=== PATIENT | female | born 1995 | race Two or more races ===

== ENCOUNTER 2019-03-27 07:16 | Outpatient (CLI) | payer BC | END 2019-03-27 07:17 | disposition home or self-care (01) | LOC: LAB 07:16 | PROVIDERS: ATTEND Physician Assistant | DX: E66.9 Obesity, unspecified (principal) | CPT/HCPCS: 36415; 82947 ==

== ENCOUNTER 2019-04-03 16:45 | Outpatient (CLI) | payer BC ==
[2019-04-03 21:39] LABS: TRICHOMONAS VAGINALIS DNA NEGATIVE (NEGATIVE)
== END 2019-04-03 23:59 | disposition home or self-care (01) ==
LOC: LAB.R 16:45
PROVIDERS: ATTEND Obstetrics & Gynecology
DX: N92.1 Excessive and frequent menstruation with irregular cycle (principal)
CPT/HCPCS: 87491; 87591; 87661

== ENCOUNTER 2019-04-11 11:07 | Outpatient (CLI) | payer SELFPAY ==
--- NOTE | 2019-04-13 09:59 | Ultrasound Report ---
Reason: MENOMETRORRHAGIA Procedure Date: 04/11/2019 Accession Number: [id number] / [id number] Procedure: US - Pelvic w/Transvaginal CPT Code: FULL RESULT: EXAM: PELVIC ULTRASOUND EXAM DATE: 04/11/2019 12:25 PM. CLINICAL HISTORY: Menometrorrhagia. COMPARISON: None. TECHNIQUE: Realtime transabdominal pelvic scan performed to identify the uterus and adnexa and as an overview of other pelvic structures, followed by transvaginal scan to provide greater detail of the uterus and adnexa, with static image documentation. FINDINGS: Uterus: 5.8 x 2.9 x 4.0 cm, volume 35 cc. Anteverted position. Normal overall size and echotexture. Masses: None. Endometrium: 8 mm. Within normal range of thickness. No definite mass or abnormal echotexture demonstrated. However, there is a vessel extending into the anterior aspect of the endometrium. Polyp or neoplasm not definitely excluded. Cervix: Multiple small nabothian cysts. Right Ovary: 2.9 x 2.0 x 3.0 cm, volume 8.9 cc. Normal echotexture and blood flow. Numerous small peripheral follicles. Left Ovary: 2.8 x 1.8 x 2.0 cm, volume 5.1 cc. Normal echotexture and blood flow. Numerous small peripheral follicles. Free Fluid: Minimal free fluid, likely physiologic. Other: None. IMPRESSION: 1. Anterior endometrial vascularity for which polyp or neoplasm is not excluded. No other definite endometrial or uterine abnormality demonstrated. 2. Both ovaries demonstrate numerous small peripheral follicles. 3. Minimal free pelvic fluid, likely physiologic. RADIA
== END 2019-04-11 11:08 | disposition home or self-care (01) ==
LOC: DI 11:07
PROVIDERS: ATTEND Obstetrics & Gynecology
DX: N92.1 Excessive and frequent menstruation with irregular cycle (principal)
CPT/HCPCS: 76830; 76856

== ENCOUNTER 2019-04-20 11:38 | Outpatient (CLI) | payer SELFPAY ==
[2019-04-20 14:18] LABS: THYROID STIMULATING HORMONE 1.43 uIU/mL (0.34-5.60)
[2019-04-20 14:23] LABS: PROLACTIN 4.26 ng/mL
[2019-04-20 14:45] LABS: FOLLICLE STIMULATING HORMONE 8.08 mIU/mL
[2019-04-20 14:46] LABS: LUTEINIZING HORMONE 11.82 mIU/mL
== END 2019-04-20 11:39 | disposition home or self-care (01) ==
LOC: LAB 11:38
PROVIDERS: ATTEND Obstetrics & Gynecology
DX: N92.1 Excessive and frequent menstruation with irregular cycle (principal)
CPT/HCPCS: 36415; 81599; 83001; 83002; 84146; 84443

== ENCOUNTER 2020-10-13 11:04 | Outpatient (CLI) | payer BC, OTHER ==
[2020-10-13 17:50] LABS: BASOPHILS % (AUTO) 0.4 %; EOSINOPHILS # (AUTO) 0.1 10^3/uL (0.0-0.7); EOSINOPHILS % (AUTO) 1.4 %; HCT - HEMATOCRIT 31.5 % (37.0-47.0); HGB - HEMOGLOBIN 8.7 g/dL (12.0-16.0); LYMPHOCYTES # (AUTO) 2.7 10^3/uL (1.5-3.5); LYMPHOCYTES % (AUTO) 29.5 %; MEAN CORPUSCULAR HEMOGLOBIN 18.5 pg (27.0-31.0); MEAN CORPUSCULAR HGB CONC 27.6 g/dL (32.0-36.0); MEAN PLATELET VOLUME 9.1 fL (7.9-10.8); MONOCYTES # (AUTO) 0.6 10^3/uL (0.0-1.0); MONOCYTES % (AUTO) 6.9 %; NEUTROPHILS # (AUTO) 5.6 10^3/uL (1.5-6.6); NEUTROPHILS % (AUTO) 61.3 %; PLT - PLATELET COUNT 507 10^3/uL (130-450); RED CELL DISTRIBUTION WIDTH 22.3 % (12.0-15.0); WHITE BLOOD COUNT 9.1 x10^3/uL (4.8-10.8)
[2020-10-13 18:04] LABS: ALBUMIN 4.3 g/dL (3.2-5.5); ALBUMIN/GLOBULIN RATIO 1.1 (1.0-2.2); ALKALINE PHOSPHATASE 87 IU/L (42-121); ALT ALANINE AMINOTRANSFERASE 17 IU/L (10-60); AST ASPARTATE AMINOTRANSFERASE 21 IU/L (10-42); BILIRUBIN,TOTAL < 0.2 mg/dL (0.2-1.0); BUN - BLOOD UREA NITROGEN 10 mg/dL (6-20); CALCIUM 8.9 mg/dL (8.5-10.3); CARBON DIOXIDE - CO2 24 mmol/L (21-32); CHLORIDE 104 mmol/L (101-111); CREATININE 0.7 mg/dL (0.4-1.0); GFR - MDRD 100 (>89); GLUCOSE 94 mg/dL (70-100); POTASSIUM 3.8 mmol/L (3.5-5.0); SODIUM 138 mmol/L (135-145); TOTAL PROTEIN 8.2 g/dL (6.7-8.2)
[2020-10-13 19:16] LABS: PLATELET ESTIMATE, MANUAL INCREASED (>450,000) (NORMAL); PLATELET MORPHOLOGY NORMAL APPEARANCE (NORMAL); SLIDE REVIEW? Indicated
== END 2020-10-13 23:59 | disposition home or self-care (01) ==
LOC: LAB.N 11:04
PROVIDERS: ATTEND Family Medicine
DX: R10.9 Unspecified abdominal pain (principal)
CPT/HCPCS: 36415; 80053; 85025

== ENCOUNTER 2020-10-17 16:31 | Outpatient (CLI) | payer BC ==
[2020-10-17] MEDS ORDERED: IOPAMIDOL-300 50 ML VIAL ONE (16:33)
[2020-10-17] MEDS ORDERED: IOPAMIDOL-300 100 ML VIAL ONE (16:34)
[2020-10-17] MEDS ORDERED: IOPAMIDOL-300 100 ML VIAL IVP ONE (17:55)
[2020-10-17] MEDS ORDERED: IOPAMIDOL-300 50 ML VIAL PO ONE (17:56)
--- NOTE | 2020-10-17 18:53 | CT Report ---
PROCEDURE: Abdomen/Pelvis W INDICATIONS: ABD PAIN CONTRAST: IV CONTRAST: Isovue 300 ml: 100 PO CONTRAST: Isovue 300 ml50 TECHNIQUE: After the administration of IV and oral contrast, 5 mm thick sections acquired from the diaphragms to the symphysis. 5 mm thick coronal and sagittal reformats were acquired. For radiation dose reducti on, the following was used: automated exposure control, adjustment of mA and/or kV according to anderson ent size. COMPARISON: Pelvic ultrasound dated 04/11/2019 FINDINGS: Image quality: Excellent. ABDOMEN: Lung bases: Lung bases are clear. Heart size is normal. Solid organs: Liver and spleen are normal in size and enhancement. Gallbladder is within normal olivas its Biliary system is non dilated. Pancreas enhances normally. No adrenal nodules. Kidneys demons trate normal size and enhancement, without hydronephrosis. Peritoneum and bowel: There is a small hiatal hernia. Bowel loops demonstrate normal wall thickness and caliber. No free fluid or air. Mild fecal stasis in the colon is seen. Appendix is visualized a nd is within normal limits. Nodes and vessels: No retroperitoneal or mesenteric adenopathy by size criteria. Aorta and inferior vena cava are normal in size. Miscellaneous: No ventral hernias. PELVIS: Genitourinary: Bladder wall thickness is normal. Uterus and bilateral ovaries show no gross abnorma lity. Miscellaneous: No inguinal hernias or adenopathy. Bones: No suspicious bony lesions. No vertebral body compression fractures. IMPRESSION: 1. No acute inflammatory process within abdomen or pelvis. No bowel obstruction. No abnormal bowel wa ll thickening. Normal appendix. No free fluid of free air. Small hiatal hernia and mild constipation. 2. No renal stone or hydronephrosis. Reviewed by: Ralph Gerard MD on 10/17/2020 5:52 PM AKDT Approved by: Ralph Gerard MD on 10/17/2020 5:52 PM AKDT Station ID: [id number]
== END 2020-10-17 16:32 | disposition home or self-care (01) ==
LOC: DI 16:31
PROVIDERS: ATTEND Family Medicine
DX: R10.9 Unspecified abdominal pain (principal)
CPT/HCPCS: 74177; Q9967

== ENCOUNTER 2020-10-19 08:00 | Outpatient (CLI) | payer BC ==
[2020-10-19 12:05] LABS: BASOPHILS % (AUTO) 0.5 %; EOSINOPHILS # (AUTO) 0.1 10^3/uL (0.0-0.7); EOSINOPHILS % (AUTO) 2.1 %; HCT - HEMATOCRIT 30.3 % (37.0-47.0); HGB - HEMOGLOBIN 8.5 g/dL (12.0-16.0); LYMPHOCYTES # (AUTO) 1.8 10^3/uL (1.5-3.5); LYMPHOCYTES % (AUTO) 27.4 %; MEAN CORPUSCULAR HEMOGLOBIN 18.4 pg (27.0-31.0); MEAN CORPUSCULAR HGB CONC 28.1 g/dL (32.0-36.0); MEAN CORPUSCULAR VOLUME 65.4 fL (81.0-99.0); MEAN PLATELET VOLUME 9.1 fL (7.9-10.8); MONOCYTES # (AUTO) 0.4 10^3/uL (0.0-1.0); MONOCYTES % (AUTO) 6.6 %; NEUTROPHILS # (AUTO) 4.2 10^3/uL (1.5-6.6); NEUTROPHILS % (AUTO) 62.9 %; PLT - PLATELET COUNT 508 10^3/uL (130-450); RED BLOOD COUNT 4.63 10^6/uL (4.20-5.40); RED CELL DISTRIBUTION WIDTH 22.1 % (12.0-15.0); RETICULOCYTE COUNT % (AUTO) 1.73 % (0.5-2.3); WHITE BLOOD COUNT 6.7 x10^3/uL (4.8-10.8)
[2020-10-19 12:15] LABS: % IRON SATURATION 4 % (20-50); IRON 20 ug/dL (28-170); TOTAL IRON BINDING CAPACITY 501 ug/dL (250-450); TRANSFERRIN 358 mg/dL (192-382)
[2020-10-19 12:18] LABS: FERRITIN 5.7 ng/mL (11.0-306.8)
[2020-10-19 12:21] LABS: FOLATE 22.46 ng/mL (5.90 - >24.8)
[2020-10-19 12:25] LABS: SLIDE REVIEW? Indicated
== END 2020-10-19 23:59 | disposition home or self-care (01) ==
LOC: LAB.N 08:00
PROVIDERS: ATTEND Family Medicine
DX: D64.9 Anemia, unspecified (principal)
CPT/HCPCS: 36415; 81599; 82607; 82728; 82746; 83020; 83540; 84466; 85014; 85018; 85025; 85041; 85045

== ENCOUNTER 2021-04-25 16:09 | Outpatient (CLI) | payer BC ==
--- NOTE | 2021-04-26 09:06 | Ultrasound Report ---
PROCEDURE: Pelvic w/Transvaginal INDICATIONS: POLYCYSTIC OVARIAN SYNDROME TECHNIQUE: Real-time scanning was performed of the pelvic organs, with image documentation. Additional endovagi nal scanning was necessary due to incomplete visualization of the adnexal and endometrial structures by transabdominal scanning. COMPARISON: April 11, 2019 FINDINGS: UTERUS: Anteverted, homogeneous echotexture, measures 5.7 x 3.1 x 4.5 cm. The endometrial thickness measures 9.7 mm. RIGHT OVARY: 3.3 x 2.1 x 2 cm. Color-flow projects over the ovarian tissue. A few scattered follicles are seen. LEFT OVARY: 2.6 x 1.8 x 3 cm. Color-flow projects over the ovarian tissue. A few scattered follicles are seen. OTHER: None. IMPRESSION: 1.No significant abnormality. Reviewed by: Delbert Doran MD on 04/26/2021 9:04 AM PDT Approved by: Delbert Doran MD on 04/26/2021 9:04 AM PDT Station ID: [id number]
== END 2021-04-25 16:10 | disposition home or self-care (01) ==
LOC: DI 16:09
PROVIDERS: ATTEND Obstetrics & Gynecology
DX: E28.2 Polycystic ovarian syndrome (principal); N92.1 Excessive and frequent menstruation with irregular cycle

== ENCOUNTER 2021-11-06 16:40 | Outpatient (CLI) | payer BC ==
[2021-11-06 20:18] LABS: ABSOLUTE RETICS # AUTO 0.093 10^6/uL (0.020-0.110); BASOPHILS # (AUTO) 0.1 10^3/uL (0.0-0.1); BASOPHILS % (AUTO) 0.5 %; EOSINOPHILS # (AUTO) 0.1 10^3/uL (0.0-0.7); HCT - HEMATOCRIT 33.6 % (37.0-47.0); HGB - HEMOGLOBIN 9.8 g/dL (12.0-16.0); LYMPHOCYTES # (AUTO) 2.7 10^3/uL (1.5-3.5); LYMPHOCYTES % (AUTO) 24.5 %; MEAN CORPUSCULAR HGB CONC 29.2 g/dL (32.0-36.0); MEAN CORPUSCULAR VOLUME 65.1 fL (81.0-99.0); MONOCYTES # (AUTO) 0.8 10^3/uL (0.0-1.0); MONOCYTES % (AUTO) 7.1 %; NEUTROPHILS # (AUTO) 7.3 10^3/uL (1.5-6.6); NEUTROPHILS % (AUTO) 66.4 %; PLT - PLATELET COUNT 491 10^3/uL (130-450); RED BLOOD COUNT 5.16 10^6/uL (4.20-5.40); RED CELL DISTRIBUTION WIDTH 21.4 % (12.0-15.0); WHITE BLOOD COUNT 10.9 x10^3/uL (4.8-10.8)
[2021-11-06 20:19] LABS: SLIDE REVIEW? Indicated
[2021-11-06 20:35] LABS: % IRON SATURATION 4 % (20-50); IRON 18 ug/dL (28-170); TOTAL IRON BINDING CAPACITY 498 ug/dL (250-450); TRANSFERRIN 356 mg/dL (192-382)
[2021-11-06 20:47] LABS: FOLATE 13.06 ng/mL (5.90 - >24.8)
[2021-11-06 20:48] LABS: PLATELET ESTIMATE, MANUAL INCREASED (>450,000) (NORMAL); PLATELET MORPHOLOGY NORMAL APPEARANCE (NORMAL)
== END 2021-11-06 16:41 | disposition home or self-care (01) ==
LOC: LAB.S 16:40
PROVIDERS: ATTEND Registered Nurse
DX: D64.9 Anemia, unspecified (principal)
CPT/HCPCS: 36415; 82607; 82728; 82746; 83540; 84466; 85025; 85045

== ENCOUNTER 2022-03-14 16:38 | Outpatient (CLI) | payer BC ==
[2022-03-14 16:50] LABS: BASOPHILS % (AUTO) 0.2 %; EOSINOPHILS # (AUTO) 0.1 10^3/uL (0.0-0.7); EOSINOPHILS % (AUTO) 0.9 %; HCT - HEMATOCRIT 39.2 % (37.0-47.0); LYMPHOCYTES # (AUTO) 2.8 10^3/uL (1.5-3.5); LYMPHOCYTES % (AUTO) 26.4 %; MEAN CORPUSCULAR HEMOGLOBIN 26.9 pg (27.0-31.0); MEAN CORPUSCULAR HGB CONC 33.2 g/dL (32.0-36.0); MEAN PLATELET VOLUME 9.1 fL (7.9-10.8); MONOCYTES # (AUTO) 0.7 10^3/uL (0.0-1.0); MONOCYTES % (AUTO) 6.5 %; NEUTROPHILS # (AUTO) 6.9 10^3/uL (1.5-6.6); NEUTROPHILS % (AUTO) 65.7 %; PLT - PLATELET COUNT 328 10^3/uL (130-450); RED BLOOD COUNT 4.84 10^6/uL (4.20-5.40); RED CELL DISTRIBUTION WIDTH 17.8 % (12.0-15.0); WHITE BLOOD COUNT 10.6 x10^3/uL (4.8-10.8)
[2022-03-14 17:09] LABS: % IRON SATURATION 8 % (20-50); IRON 33 ug/dL (28-170); TOTAL IRON BINDING CAPACITY 402 ug/dL (250-450); TRANSFERRIN 287 mg/dL (192-382)
== END 2022-03-14 16:39 | disposition home or self-care (01) ==
LOC: LAB 16:38
PROVIDERS: ATTEND Registered Nurse
DX: D64.9 Anemia, unspecified (principal)
CPT/HCPCS: 36415; 83540; 84466; 85025

== ENCOUNTER 2023-11-09 15:53 | Outpatient (CLI) | payer BC ==
--- NOTE | 2023-11-10 06:42 | Ultrasound Report ---
PROCEDURE: Pelvic w/Transvaginal INDICATIONS: MENSTRAL IRREGULARITY TECHNIQUE: Real-time scanning was performed of the pelvic organs, with image documentation. Additional endovagi nal scanning was necessary due to incomplete visualization of the adnexal and endometrial structures by transabdominal scanning. COMPARISON: 04/25/2021 FINDINGS: Uterus: Uterus measures 5.2 x 2.6 x 4.3 cm anteverted positioning. Endometrium normal thickness at 0. 2 cm. Ovaries: Unremarkable appearance of the ovaries measuring about 1 cc each. Other: Moderate amount of fluid is seen in the cervical canal. An echogenic focus is seen along the c ervical wall measuring 3 x 2 mm. IMPRESSION: Unremarkable sonographic appearance of the endometrium and ovaries. Moderate amount of fluid is seen in the cervical canal. An echogenic focus along the wall measures 3 mm could represent blood clot or a small polyp. Reviewed by: Duane Cuellar MD on 11/10/2023 6:40 AM PDT Approved by: Duane Cuellar MD on 11/10/2023 6:40 AM PDT Station ID: [id number]
== END 2023-11-09 15:54 | disposition home or self-care (01) ==
LOC: DI 15:53
PROVIDERS: ATTEND Registered Nurse
DX: N92.6 Irregular menstruation, unspecified (principal); E28.2 Polycystic ovarian syndrome

== ENCOUNTER 2023-11-18 08:27 | Outpatient (CLI) | payer BC ==
[2023-11-18 12:25] LABS: BASOPHILS % (AUTO) 0.3 %; EOSINOPHILS # (AUTO) 0.2 10^3/uL (0.0-0.7); EOSINOPHILS % (AUTO) 1.6 %; HCT - HEMATOCRIT 42.7 % (37.0-47.0); HGB - HEMOGLOBIN 13.3 g/dL (12.0-16.0); LYMPHOCYTES # (AUTO) 2.4 10^3/uL (1.5-3.5); LYMPHOCYTES % (AUTO) 24.5 %; MEAN CORPUSCULAR HEMOGLOBIN 27.7 pg (27.0-31.0); MEAN CORPUSCULAR HGB CONC 31.1 g/dL (32.0-36.0); MEAN PLATELET VOLUME 9.8 fL (7.9-10.8); MONOCYTES # (AUTO) 0.6 10^3/uL (0.0-1.0); MONOCYTES % (AUTO) 5.9 %; NEUTROPHILS # (AUTO) 6.5 10^3/uL (1.5-6.6); NEUTROPHILS % (AUTO) 67.3 %; PLT - PLATELET COUNT 342 10^3/uL (130-450); RED CELL DISTRIBUTION WIDTH 13.8 % (12.0-15.0); WHITE BLOOD COUNT 9.7 x10^3/uL (4.8-10.8)
[2023-11-18 12:41] LABS: ALBUMIN 3.8 g/dL (3.2-5.5); ALBUMIN/GLOBULIN RATIO 1.1 (1.0-2.2); ALKALINE PHOSPHATASE 66 IU/L (42-121); ALT ALANINE AMINOTRANSFERASE 17 IU/L (10-60); AST ASPARTATE AMINOTRANSFERASE 14 IU/L (10-42); BILIRUBIN,TOTAL 0.3 mg/dL (0.2-1.0); BUN - BLOOD UREA NITROGEN 8 mg/dL (6-20); CALCIUM 9.4 mg/dL (8.5-10.3); CARBON DIOXIDE - CO2 28 mmol/L (21-32); CHLORIDE 103 mmol/L (101-111); CHOL/HDL RATIO 3.8 (<4.4); CHOLESTEROL 169 mg/dL; CREATININE 0.5 mg/dL (0.6-1.3); GFR - MDRD 145 (>89); GLUCOSE 112 mg/dL (74-104); HDL CHOLESTEROL 44 mg/dL; LDL CHOLESTEROL,CALCULATED 87 mg/dL; POTASSIUM 4.1 mmol/L (3.5-4.5); SODIUM 137 mmol/L (135-145); TOTAL PROTEIN 7.4 g/dL (6.4-8.9); TRIGLYCERIDES 192 mg/dL (48-352); VLDL CHOLESTEROL 38 mg/dL
[2023-11-18 12:53] LABS: THYROID STIMULATING HORMONE 1.16 uIU/mL (0.34-5.60)
== END 2023-11-18 08:28 | disposition home or self-care (01) ==
LOC: LAB.N 08:27
PROVIDERS: ATTEND Registered Nurse
DX: Z13.220 Encounter for screening for lipoid disorders (principal); Z13.29 Encounter for screening for other suspected endocrine disorder; Z79.899 Other long term (current) drug therapy
CPT/HCPCS: 36415; 80053; 80061; 83721; 84443; 85025

== ENCOUNTER 2024-01-03 08:00 | Outpatient (CLI) | payer BC | END 2024-01-03 23:59 | disposition home or self-care (01) | LOC: LAB 08:00 | PROVIDERS: ATTEND Physician Assistant | DX: N39.0 Urinary tract infection, site not specified (principal) | CPT/HCPCS: 87086; 87181 ==